=== PATIENT | male | born 1960 | race Caucasian/White ===

== ENCOUNTER → 2016-06-27 | Outpatient (CLI) | payer BC ==
[2016-06-27 12:55] LABS: HEMOGLOBIN 15.6 gm/dl (14.0-17.5); RED BLOOD COUNT 5.05 M/UL (4.20-5.50); WHITE BLOOD COUNT 5.7 K/UL (4.5-11.0)
[2016-06-27 13:11] LABS: BUN/CREATININE RATIO 33 (0-10)
== END ==
LOC: LAB 12:10
PROVIDERS: Emergency Medicine
DX: I10 Essential (primary) hypertension (principal); E78.2 Mixed hyperlipidemia; F32.0 Major depressive disorder, single episode, mild; F32.89 Other specified depressive episodes
CPT/HCPCS: 36415; 71020; 80053; 85027; 85610; 85730; 87081; 93005

== ENCOUNTER 2020-03-30 14:49 | Emergency (ER) | payer BC ==
[2020-03-30 16:17] LABS: HEMOGLOBIN 15.3 gm/dl (14.0-17.5); RED BLOOD COUNT 4.91 M/UL (4.20-5.50)
[2020-03-30 16:50] LABS: BUN/CREATININE RATIO 24 (0-10)
[2020-03-30] MEDS ORDERED: VENTOLIN HFA 66.7 GM INH (17:48)
== END 2020-03-30 20:26 | disposition home or self-care (01) ==
LOC: ER1 14:49
PROVIDERS: Emergency Medicine; Physician Assistant
DX: U07.1 COVID-19 (principal); J12.82 Pneumonia due to coronavirus disease 2019; I10 Essential (primary) hypertension; I25.10 Atherosclerotic heart disease of native coronary artery without angina pectoris; Z88.2 Allergy status to sulfonamides
CPT/HCPCS: 36415; 71045; 80053; 82550; 82553; 83874; 83880; 84484; 85025; 85379; 86140; 99285; M0239

== ENCOUNTER → 2021-10-18 | Outpatient (CLI) | payer BC ==
[~2021-10-18] MED LIST: VENTOLIN HFA 66.7 GM INH
== END ==
LOC: LAB 14:45
DX: U07.1 COVID-19 (principal); R09.81 Nasal congestion
CPT/HCPCS: U0002

== ENCOUNTER → 2021-10-19 | Outpatient (CLI) | payer BC | LOC: EROP 08:10 | DX: U07.1 COVID-19 (principal); Z23 Encounter for immunization | CPT/HCPCS: M0222; Q0222 ==